=== PATIENT | female | born 1965 | race Caucasian/White ===

== ENCOUNTER → 2017-09-08 | Outpatient (CLI) | payer BC, OTHER ==
[~2017-09-08] MED LIST: B12 PO; FRS325T PO; HCT25T PO; IBP600T1 PO; MULT-963 PO; OXYC-12 PO; [UNRECOGNIZED DRUG - OTHER] PO
--- NOTE | 2017-09-08 13:19 | Diagnostic Imaging Report ---
Bilateral screening mammogram 2D views with tomosynthesis. The current study was also evaluated with a Computer Aided Detection (CAD) system. INDICATION: Screening. No current complaints stated on the questionnaire. COMPARISON: 09/04/16. FINDINGS: The breasts are composed of scattered fibroglandular densities. There are no masses, architectural distortion or suspicious cluster of calcification. Allowing for technique and positional differences, no suspicious change is seen. IMPRESSION: No significant change. ACR BI-RADS Category 2: Benign findings. Result letter will be mailed to the patient. Note: At least 10% of breast cancer is not imaged by mammography. Dictated by: Dictated on workstation # [id number]
== END ==
LOC: RAD 08:51
PROVIDERS: ATTEND Internal Medicine
DX: Z12.31 Encounter for screening mammogram for malignant neoplasm of breast (principal)
CPT/HCPCS: 77067

== ENCOUNTER → 2018-09-09 | Outpatient (CLI) | payer OTHER ==
--- NOTE | 2018-09-10 20:53 | Diagnostic Imaging Report ---
INDICATION: Routine screening. COMPARISON: 09/08/2017 and 09/04/2016. TECHNIQUE: 2D and 3D bilateral screening mammography was performed with CAD. FINDINGS: Scattered fibroglandular densities are identified bilaterally. The parenchymal pattern is stable. No mass or malignant-appearing microcalcifications are seen. The axillae are unremarkable. IMPRESSION: No mammographic features suspicious for malignancy are identified. ACR BI-RADS Category 1: Negative. Result letter will be mailed to the patient. Note: At least 10% of breast cancer is not imaged by mammography. Dictated on workstation # [id number]
== END ==
LOC: RAD 14:37
PROVIDERS: ATTEND Internal Medicine
DX: Z12.31 Encounter for screening mammogram for malignant neoplasm of breast (principal)
CPT/HCPCS: 77067

== ENCOUNTER 2018-11-10 21:28 | Emergency (ER) | payer OTHER ==
[~2018-11-10] VITALS: Ht 162.6 cm; Wt 108.9 kg
--- OUTSIDE RECORDS SUMMARY | 2018-11-10 21:33 | XMS REPORT ---
Author Author RADHA ZAVALETA Organization [facility] Address [address] [place] [address] Care Team Providers Care Animal [facility] Clerk Name Role Phone RADHA ZAVALETA Unavailable PROBLEMS Unknown Problems ALLERGIES No Known Allergies ENCOUNTERS Encounter Location Date Diagnosis [facility] [address] [facility] [id number] [address] Apr, Rash R21 IMMUNIZATIONS No Known Immunizations SOCIAL HISTORY Never Assessed REASON FOR VISIT tick bite 2 weeks ago on left wrist. has a small red area there et wants it looked at. [email or web address] PLAN OF CARE Activity Details Follow Up prn Reason: VITAL SIGNS Height 64 in 2018-05-01 Weight 235.2 lbs 2018-05-01 Temperature 99.5 degrees Fahrenheit 2018-05-01 Heart Rate 88 bpm 2018-05-01 Respiratory Rate 20 2018-05-01 BMI 40.37 kg/m2 2018-05-01 Blood pressure systolic 130 mmHg 2018-05-01 Blood pressure diastolic 78 mmHg 2018-05-01 MEDICATIONS Medication Instructions Dosage Frequency Start Date End Date Duration Status Estradiol 1 MG Orally Daily for Three Weeks, 1 Week off 1 tablet Active Hydrochlorothiazide 12.5 MG Orally Once a day 1 capsule in the morning 24h Active RESULTS No Results PROCEDURES No Known procedures INSTRUCTIONS MEDICATIONS ADMINISTERED No Known Medications MEDICAL (GENERAL) HISTORY Type Description Date Medical History edema in LLE Surgical History TVH c A&P repair Surgical History X 1 Surgical History Exploratory Lap
--- OUTSIDE RECORDS SUMMARY | 2018-11-10 21:33 | XMS REPORT | Continuity of Care Document ---
Author Author [facility] Organization [facility] Address Unknown Phone Unavailable Allergies Active Description Code Type Severity Reaction Onset Reported/Identified Relationship to Patient Clinical Status Yes No Known Drug Allergies [id number] Drug Allergy Unknown N/A 09/23/2012 Medications There is no data. Problems Date Dx Coded Attending Type Code Diagnosis Diagnosed By 11/12/2012 Ot 998.12 08/31/2014 Ot 401.9 08/31/2014 Ot 618.4 08/31/2014 Ot 623.7 08/31/2014 Ot V72.63 08/31/2014 Ot V74.8 08/31/2014 CHERELLE PATE DO Ot V76.12 09/19/2014 JP MARTINEZ MD Ot V76.12 09/03/2015 JP MARTINEZ MD Ot V76.12 09/06/2015 LUBA TALAMANTES Ot Z12.31 09/06/2015 JP MARTINEZ MD Ot V76.12 09/06/2015 LUBA TALAMANTES MACARONI MAKER Ot Z12.31 09/06/2015 LUBA TALAMANTES MACARONI MAKER Ot Z12.31 09/18/2015 LUBA TALAMANTESP Ot Z12.31 09/04/2016 JP MARTINEZ MD Ot V76.12 OT SCREEN MAMMO-MALIGN NEOPLASM OF EDILMA 09/04/2016 LUBA TALAMANTES Ot Z12.31 ENCNTR SCREEN MAMMOGRAM FOR MALIGNANT NE 09/04/2016 ESTEVAN POOLE DO Ot Z12.31 ENCNTR SCREEN MAMMOGRAM FOR MALIGNANT NE 09/05/2016 ESTEVAN POOLE DO Ot Z12.31 ENCNTR SCREEN MAMMOGRAM FOR MALIGNANT NE 09/23/2016 ESTEVAN POOLE DO Ot Z12.31 ENCNTR SCREEN MAMMOGRAM FOR MALIGNANT NE 08/31/2017 JP MARTINEZ MD Ot V76.12 OT SCREEN MAMMO-MALIGN NEOPLASM OF EDILMA 08/31/2017 LUBA TALAMANTES Ot Z12.31 ENCNTR SCREEN MAMMOGRAM FOR MALIGNANT NE 08/31/2017 POOLEESTEVAN REINOSO DO Ot Z12.31 ENCNTR SCREEN MAMMOGRAM FOR MALIGNANT NE 09/08/2017 JP MARTINEZ MD Ot V76.12 OTH SCREEN MAMMO-MALIGN NEOPLASM OF EDILMA 09/08/2017 LUBA TALAMANTES Ot Z12.31 ENCNTR SCREEN MAMMOGRAM FOR MALIGNANT NE 09/08/2017 POOLE DOESTEVAN Ot Z12.31 ENCNTR SCREEN MAMMOGRAM FOR MALIGNANT NE 09/23/2017 POOLE DO, ESTEVAN Smith Ot Z12.31 ENCNTR SCREEN MAMMOGRAM FOR MALIGNANT NE 09/10/2018 POOLE DOESTEVAN Ot Z12.31 ENCNTR SCREEN MAMMOGRAM FOR MALIGNANT NE 09/22/2018 POOLE DO, ESTEVAN Smith Ot Z12.31 ENCNTR SCREEN MAMMOGRAM FOR MALIGNANT NE Procedures There is no data. Results There is no data. Encounters ACCT No. Visit Date/Time Discharge Status Pt. Type Provider Facility Loc./Unit Complaint [id number] 09/09/2018 14:37:00 09/09/2018 23:59:59 CLS Outpatient ESTEVAN POOLE DO [facility] RAD SCREENING [id number] 09/08/2017 08:51:00 09/08/2017 23:59:59 CLS Outpatient ESTEVAN POOLE DO [facility] RAD SCREENING [id number] 09/04/2016 08:51:00 09/04/2016 23:59:59 CLS Outpatient ZULEMA CURTIS ESTEVAN Smith [facility] RAD SCREENING [id number] 09/03/2015 14:58:00 09/03/2015 23:59:59 CLS Outpatient LUBA TALAMANTES [facility] RAD SCREENING [id number] 08/31/2014 15:30:00 08/31/2014 23:59:59 CLS Outpatient JP MARTINEZ MD [facility] RAD SCREENING [id number] 08/29/2013 08:35:00 08/29/2013 23:59:59 CLS Outpatient CHERELLE PATE DO [facility] RAD [id number] 11/10/2018 21:29:00 ACT Emergency SELIN ABBASI DO [facility] ER DOG BITE L ARM [id number] 11/10/2012 16:22:00 Document Registration [id number] 11/02/2012 10:23:00 Document Registration [email or web address] 08/31/2014 15:31:25 ACT Document Registration
[2018-11-10] MEDS ORDERED: LIDOCAINE 1% INJ 20 ML 20 ML VIAL INJ ONE (21:45)
--- NOTE | 2018-11-10 21:47 | ED Integumentary General ---
General Stated Complaint: DOG BITE L ARM Source: patient Exam Limitations: no limitations History of Present Illness Date Seen by Provider: Nov 10, 2018 Time Seen by Provider: 21:43 Initial Comments 53-year-old female who presents to the emergency room with complaints of a dog bite to her left arm. She reports that she was feeding her dogs when the got in a fight and she tried to break them up and herbal dog bit her on the left arm. She has a 1 cm laceration to her arm. See images for location. She reports that she is up-to-date on her tetanus vaccine and her dogs are up-to-date on her vaccinations. Timing/Duration: just prior to arrival Allergies and Home Medications Allergies Coded Allergies: No Known Drug Allergies (Unverified , 09/23/12) Home Medications Amoxicillin/Potassium Clav 1 Each Tablet, 1 EACH PO BID Prescribed by: HERB AVINA on 11/10/182226 Ferrous Sulfate 325 Mg Tablet, 1 TAB PO BID, (Reported) Hydrochlorothiazide 25 Mg Tab, 25 MG PO DAILY, (Reported) Ibuprofen 600 Mg Tab, 600 MG PO Q6H PRN, (Reported) Multivitamin 1 Each Tablet, 1 EACH PO DAILY, (Reported) Oxycodone Hcl/Acetaminophen 1 Each Tablet, 1-2 EACH PO Q 4-6 HR PRN, (Reported) FOR PAIN [B12] , PO DAILY, (Reported) [Postassium] , 10 MEQ PO DAILY, (Reported) Patient Home Medication List Home Medication List Reviewed: Yes Review of Systems Review of Systems Constitutional: no symptoms reported, see HPI Skin: see HPI, other (laceration/ dog bite) All Other Systems Reviewed Negative Unless Noted: Yes Past Aywpoik-Xsiruw-Chsqct Hx Past Med/Social Hx: Reviewed Nursing Past Med/Soc Hx Patient Social History Recent Foreign Travel: No Contact w/Someone Who Travel: No Immunizations Up To Date Tetanus Booster (TDap): More than 5yrs PED Vaccines UTD: Yes Date of Influenza Vaccine: Jul 15, 2012 Past Medical History Reproductive Disorders: Yes (RECTOCELE) Female Reproductive Disorders: Denies Sexually Transmitted Disease: No HIV/AIDS: No Family Medical History Reviewed Nursing Family Hx Physical Exam Vital Signs Vital Signs - First Documented 11/10/18 21:37 Temp 98.0 Pulse 88 Resp 18 B/P (MAP) 155/89 (111) Pulse Ox 98 O2 Delivery Room Air Capillary Refill : General Appearance: WD/WN, no apparent distress Cardiovascular: normal peripheral pulses, regular rate, rhythm, no edema, no gallop, no JVD, no murmur Respiratory: chest non-tender, lungs clear, normal breath sounds, no respiratory distress, no accessory muscle use Skin: normal color, warm/dry Skin Problem Location: upper extremities Skin Problem Character: linear (Laceration surrounded by ecchymosis see images for location) Procedures/Interventions Wound Location: Upper Extremities (left arm) Wound Length (cm): 1 Wound's Depth, Shape: superficial, linear Irrigated w/ Saline (ccs): 250 Betadine Prep?: Yes (Betasept) Anesthesia: 1% Lidocaine Volume Anesthetic (ccs): 2 Suture: Prolene Suture Size: 4-0 Number of Sutures: 1 Progress The wound was cleaned and irrigated with normal saline and Betasept thoroughly. The wound was anesthetized with approximately 2 mL's of lidocaine 1% without epinephrine. The wound was closed loosely with one simple interrupted suture of 4-0 Prolene. Triple antibiotic ointment and sterile dressing was applied. Progress/Results/Core Measures Results/Orders My Orders Orders - HERB AVINA Lidocaine 1% Inj 20 Ml (Xylocaine 1% Inj (11/10/18 21:45) Amoxicillin/Clavulanate Tablet (Augmenti (11/11/18 07:00) Amoxicillin/Clavulanate Tablet (Augmenti (11/10/18 21:57) Medications Given in ED Vital Signs/I&O 11/10/18 11/10/18 21:37 22:30 Temp 98.0 98.0 Pulse 88 77 Resp 18 18 B/P (MAP) 155/89 (111) 126/91 (103) Pulse Ox 98 98 O2 Delivery Room Air Room Air Departure Impression Primary Impression: Dog bite Additional Impression: Laceration Disposition: 01 HOME, SELF-CARE Condition: Stable/Unchanged Departure-Patient Inst. Decision time for Depature: 22:21 Referrals: ESTEVAN BUSTAMANTE DO (PCP/Family) Primary Care Physician Patient Instructions: Animal Bites (DC), Laceration Repair With Stitches (DC) Add. Discharge Instructions: Take medications as directed. Be sure to complete the entire course of your antibiotics. Return back to the emergency room in 7 days to have the suture removed. Return back to the emergency room for signs of infection such as increased redness, swelling, drainage, red streaks going up your arm, pain, worsening symptoms, or any other concerns as needed. Follow-up with Dr. Bustamante as needed. Scripts Amoxicillin/Potassium Clav (Augmentin 875-125 Tablet) 1 Each Tablet 1 EACH PO BID for 7 Days, #14 TAB Prov: HERB AVINA 11/10/18 Images Extremities-Upper 1 - Laceration 2 - Ecchymosis HERB AVINA Nov 10, 2018 21:47
[2018-11-10] MEDS ORDERED: AUGMENTIN 875 MG TAB (AMOXICILLIN/CLAVULANATE) ONE (21:57)
[2018-11-10] MEDS ORDERED: AMOX-358 PO (22:27)
[2018-11-10 22:30] VITALS: BP 126/91
[2018-11-11] MEDS ORDERED: AUGMENTIN 875 MG TAB (AMOXICILLIN/CLAVULANATE) PO SCH (07:00)
== END 2018-11-10 22:30 | disposition home or self-care (01) ==
LOC: EDUNIT# 21:28 → ER 21:29
DX: S51.852A Open bite of left forearm, initial encounter (principal); S41.112A Laceration without foreign body of left upper arm, initial encounter; Z87.448 Personal history of other diseases of urinary system; W54.0XXA Bitten by dog, initial encounter
CPT/HCPCS: 12001

== ENCOUNTER → 2018-11-17 | Emergency (ER) | payer OTHER ==
[~2018-11-17] MED LIST changes: +AMOX-358 PO
--- OUTSIDE RECORDS SUMMARY | 2018-11-17 18:08 | XMS REPORT | Continuity of Care Document ---
Author Author [facility] Organization [facility] Address Unknown Phone Unavailable Allergies Active Description Code Type Severity Reaction Onset Reported/Identified Relationship to Patient Clinical Status Yes No Known Drug Allergies [id number] Drug Allergy Unknown N/A 09/23/2012 Medications There [...] MARTINEZ MD Ot V76.12 09/06/2015 LUBA TALAMANTES PRODUCTION BROACHER Ot Z12.31 09/06/2015 LUBA TALAMANTES PRODUCTION BROACHER Ot Z12.31 09/18/2015 LUBA TALAMANTESP Ot Z12.31 [...] ENCNTR SCREEN MAMMOGRAM FOR MALIGNANT NE 08/31/2017 POOLE DOESTEVAN Ot Z12.31 ENCNTR SCREEN MAMMOGRAM FOR MALIGNANT NE 09/08/2017 JUAN CHAPMAN, JP Smith Ot V76.12 OTH SCREEN MAMMO-MALIGN NEOPLASM OF EDILMA 09/08/2017 ALBIN LUBASean BREAUX Ot Z12.31 ENCNTR SCREEN MAMMOGRAM FOR MALIGNANT NE 09/08/2017 POOLE DO, ESTEVAN Smith Ot Z12.31 ENCNTR SCREEN MAMMOGRAM FOR MALIGNANT NE 09/23/2017 POOLE DO, ESTEVAN Smith Ot Z12.31 ENCNTR SCREEN MAMMOGRAM FOR MALIGNANT NE 09/10/2018 POOLE DO, ESTEVAN Smith Ot Z12.31 ENCNTR SCREEN MAMMOGRAM FOR MALIGNANT NE 09/22/2018 POOLE DO, ESTEVAN Smith Ot Z12.31 ENCNTR SCREEN MAMMOGRAM FOR MALIGNANT NE 11/12/2018 HERB AVINA Ot S41.112A LACERATION W/O FOREIGN BODY OF LEFT UPPE 11/12/2018 HERB AVINA Ot S51.852A OPEN BITE OF LEFT FOREARM, INITIAL ENCOU 11/12/2018 HERB AVINA Ot W54.0XXA BITTEN BY DOG, INITIAL ENCOUNTER 11/12/2018 HERB AVINA Ot Z87.448 PERSONAL HISTORY OF OTHER DISEASES OF UR Procedures There is no data. Results There is no data. Encounters ACCT No. Visit Date/Time Discharge Status Pt. Type Provider Facility Loc./Unit Complaint [id number] 11/10/2018 21:29:00 11/10/2018 22:30:00 DIS Outpatient HERB AVINA [facility] ER DOG BITE L ARM [id number] 09/09/2018 14:37:00 09/09/2018 23:59:59 CLS Outpatient ESTEVAN POOLE DO [facility] RAD SCREENING [id number] 09/08/2017 08:51:00 09/08/2017 23:59:59 CLS Outpatient ESTEVAN POOLE DO [facility] RAD SCREENING [id number] 09/04/2016 08:51:00 09/04/2016 23:59:59 CLS Outpatient ESTEVAN POOLE DO [facility] RAD SCREENING [id number] 09/03/2015 14:58:00 09/03/2015 23:59:59 CLS Outpatient LUBA TALAMANTES [facility] RAD SCREENING [id number] 08/31/2014 15:30:00 08/31/2014 23:59:59 CLS Outpatient JP MARTINEZ MD [facility] RAD SCREENING [id number] 08/29/2013 08:35:00 08/29/2013 23:59:59 CLS Outpatient CHERELLE PATE DO [facility] RAD [id number] 11/17/2018 18:04:00 ACT Emergency SELIN ABBASI DO [facility] ER SUTURE REMOVAL [id number] 11/10/2012 16:22:00 Document Registration [id number] 11/02/2012 10:23:00 Document Registration [email or web address] 08/31/2014 15:31:25 ACT Document Registration
--- NOTE | 2018-11-17 18:27 | NUR ---
NO CHARGE NOT SUTURE IN WOUND
--- OUTSIDE RECORDS SUMMARY | 2018-11-24 00:18 | XMS REPORT | Continuity of Care Document ---
Author Author [facility] Organization [facility] Address Unknown Phone Unavailable Allergies Active Description Code Type Severity Reaction Onset Reported/Identified Relationship to Patient Clinical Status Yes No Known Drug Allergies [id number] Drug Allergy Unknown N/A 09/23/2012 Medications There [...] MARTINEZ MD Ot V76.12 09/06/2015 LUBA TALAMANTES BAG END SEWER Ot Z12.31 09/06/2015 LUBA TALAMANTES BAG END SEWER Ot Z12.31 09/18/2015 LUBA TALAMANTESP Ot Z12.31 [...] Status Pt. Type Provider Facility Loc./Unit Complaint [id number] 11/10/2018 21:29:00 11/10/2018 22:30:00 DIS Outpatient HERB AVINA [facility] ER DOG BITE L ARM [id number] 09/09/2018 14:37:00 09/09/2018 23:59:59 CLS Outpatient ESTEVAN POOLE DO [facility] RAD SCREENING [id number] 09/08/2017 08:51:00 09/08/2017 23:59:59 CLS Outpatient ESTEVAN POOLE DO [facility] RAD SCREENING [id number] 09/04/2016 08:51:00 09/04/2016 23:59:59 CLS Outpatient ESTEVAN POOLE DO [facility] RAD SCREENING [id number] 09/03/2015 14:58:00 09/03/2015 23:59:59 CLS Outpatient LUBA TALAMANTES [facility] RAD SCREENING [id number] 08/31/2014 15:30:00 08/31/2014 23:59:59 CLS Outpatient JP MARTINEZ MD [facility] RAD SCREENING [id number] 08/29/2013 08:35:00 08/29/2013 23:59:59 CLS Outpatient CHERELLE PATE DO [facility] RAD [id number] 11/17/2018 18:03:00 ACT Emergency SELIN ABBASI DO [facility] ER SUTURE REMOVAL [id number] 11/10/2012 16:22:00 Document Registration [id number] 11/02/2012 10:23:00 Document Registration [email or web address] 08/31/2014 15:31:25 ACT Document Registration
== END | disposition home or self-care (01) ==
LOC: ER 18:03 → EDUNIT# 18:03 → ER 18:04
DX: Z48.02 Encounter for removal of sutures (principal)

== ENCOUNTER → 2019-09-12 | Outpatient (CLI) | payer BC, OTHER ==
--- NOTE | 2019-09-12 16:47 | Diagnostic Imaging Report ---
INDICATION: Routine screening. COMPARISON is made with prior mammograms 09/09/2018 and 09/08/2017. 2-D and 3-D bilateral screening mammography was performed with CAD. Scattered fibroglandular densities are identified bilaterally. The parenchymal pattern is stable. No dominant mass or malignant-appearing microcalcifications are seen. Axillae are unremarkable. IMPRESSION: BI-RADS Category 1 No mammographic features suspicious for malignancy are identified. Dictated by: Dictated on workstation # [id number]
== END ==
LOC: RAD 14:46
PROVIDERS: ATTEND Internal Medicine
DX: Z12.31 Encounter for screening mammogram for malignant neoplasm of breast (principal)
CPT/HCPCS: 77067

== ENCOUNTER → 2020-09-13 | Outpatient (CLI) | payer BC ==
--- NOTE | 2020-09-13 17:45 | Diagnostic Imaging Report ---
Digital mammogram, bilateral screening. This study was compared to the prior exams of 09/12/2019, 09/09/2018 and 09/08/2017. At this time, there are no current complaints. The breasts are predominantly fatty. When compared to the prior study, there has been no significant change. There is no primary or secondary sign of malignancy noted. IMPRESSION: There is no evidence of malignancy. ACR category 1 ACR BI-RADS Category 1: Negative. Result letter will be mailed to the patient. Note: At least 10% of breast cancer is not imaged by mammography. Dictated by: Dictated on workstation # [id number]
== END ==
LOC: RAD 11:05
PROVIDERS: ATTEND Nurse Practitioner
DX: Z12.31 Encounter for screening mammogram for malignant neoplasm of breast (principal)
CPT/HCPCS: 77063; 77067

== ENCOUNTER 2020-11-07 11:19 | Outpatient (RCR) | payer BC | END 2020-11-12 08:16 | disposition home or self-care (01) | PROVIDERS: ATTEND Nurse Practitioner Family | DX: M17.0 Bilateral primary osteoarthritis of knee (principal); M23.52 Chronic instability of knee, left knee; R29.898 Other symptoms and signs involving the musculoskeletal system ==

== ENCOUNTER 2021-01-17 14:31 | Outpatient (RCR) | payer BC | END 2021-03-07 | disposition home or self-care (01) | PROVIDERS: ATTEND Orthopaedic Surgery | DX: M17.12 Unilateral primary osteoarthritis, left knee (principal); Z96.652 Presence of left artificial knee joint ==

== ENCOUNTER → 2021-05-15 | Outpatient (CLI) | payer BC | LOC: LABNPT 08:45 | PROVIDERS: ATTEND Orthopaedic Surgery | DX: Z01.812 Encounter for preprocedural laboratory examination (principal); Z20.822 Contact with and (suspected) exposure to COVID-19 | CPT/HCPCS: 87635 ==

== ENCOUNTER → 2021-12-10 | Outpatient (CLI) | payer BC ==
--- NOTE | 2021-12-10 13:14 | Diagnostic Imaging Report ---
INDICATION: Routine screening. COMPARISON: 09/13/2020 and 09/12/2019. TECHNIQUE: 2D and 3D bilateral screening mammography was performed with CAD. TECHNIQUE: Scattered fibroglandular densities are identified bilaterally. No mass or malignant-appearing microcalcifications are seen. The axillae are unremarkable. IMPRESSION: No mammographic features suspicious for malignancy are identified. ACR BI-RADS Category 1: Negative. Result letter will be mailed to the patient. Note: At least 10% of breast cancer is not imaged by mammography. Dictated by: Dictated on workstation # [id number]
== END ==
LOC: RAD 10:36
PROVIDERS: ATTEND Surgery
DX: Z12.31 Encounter for screening mammogram for malignant neoplasm of breast (principal)
CPT/HCPCS: 77063; 77067

== ENCOUNTER → 2022-12-19 | Outpatient (CLI) | payer BC ==
--- NOTE | 2022-12-19 15:18 | Diagnostic Imaging Report ---
Indication: Routine screening. Comparison is made with prior mammograms 12/10/2021 and 09/13/2020. 2-D and 3-D bilateral screening mammography was performed with CAD. Scattered fibroglandular densities are identified bilaterally. The parenchymal pattern is stable. No mass or malignant-appearing microcalcifications are identified. Axillae are unremarkable. IMPRESSION: BI-RADS Category 1 No mammographic features suspicious for malignancy are identified. ACR BI-RADS Category 1: Negative. Result letter will be mailed to the patient. Note: At least 10% of breast cancer is not imaged by mammography. Dictated by: Dictated on workstation # [id number]
== END ==
LOC: RAD 13:35
PROVIDERS: ATTEND Surgery
DX: Z12.31 Encounter for screening mammogram for malignant neoplasm of breast (principal)
CPT/HCPCS: 77063; 77067